=== PATIENT | female | born 1980 | race Caucasian/White ===

== ENCOUNTER → 2016-05-21 | Outpatient (CLI) | payer BC ==
[~2016-05-21] MED LIST: ALBUAER INH; BUDE180I INH; FRRS300 PO; MOME220A INH; MONT1TAB3 PO; MTR600X PO
[2016-05-21 14:37] LABS: URINE APPEARANCE CLEAR (CLEAR); URINE BILIRUBIN NEG (NEG); URINE COLOR DK YELLOW; URINE NITRITE NEG (NEG); URINE PH 5.5 (4.5-7.5); URINE SPECIFIC GRAVITY 1.021 (1.000-1.030); UROBILINOGEN NEG (NEG)
[2016-05-21 14:50] LABS: MANUAL MICROSCOPIC REQUIRED? NO; REVIEW REQ? NO
== END | disposition home or self-care (01) ==
LOC: C.LABSPEC 13:52
PROVIDERS: ATTEND Obstetrics & Gynecology
DX: O09.299 Supervision of pregnancy with other poor reproductive or obstetric history, unspecified trimester (principal)

== ENCOUNTER → 2016-05-29 | Outpatient (CLI) | payer BC ==
[~2016-05-29] MED LIST changes: +ANTIBIOTIC EXT; +PRENTAB26 PO; +RANI150T3 PO; +VALA500T60 PO
[2016-05-29 10:28] LABS: BASO % 0.2 %; BASO ABS # 0.02 K/uL (0-0.2); COMPLETE YES; HEMATOCRIT 35.5 % (37-47); IG% 0.4 %; LYMPH % 17.2 %; LYMPH ABS # 1.73 K/uL (1.2-3.4); MEAN CORPUSCULAR HEMOGLOBIN 31.1 pg (25-34); MEAN CORPUSCULAR HGB CONC 34.9 g/dl (32-36); MEAN PLATELET VOLUME 8.8 fL (7.4-10.4); MONO % 7.6 %; NEUT % 73.6 %; PLATELET COUNT 271 K/uL (130-400); RED BLOOD COUNT 3.99 M/uL (4.2-5.4); WHITE BLOOD COUNT 10.08 K/uL (4.8-10.8)
[2016-05-31 01:17] LABS: CHLAMYDIA TRACH RNA*** NOT DETECTED (NOT DETECTED); GC (NEIS GONORRHOEAE)RNA** NOT DETECTED (NOT DETECTED)
== END | disposition home or self-care (01) ==
LOC: C.LAB1850 08:51
PROVIDERS: ATTEND Obstetrics & Gynecology
DX: O09.519 Supervision of elderly primigravida, unspecified trimester (principal); Z3A.00 Weeks of gestation of pregnancy not specified

== ENCOUNTER → 2016-07-19 | Outpatient (CLI) | payer BC ==
[2016-07-19 17:39] LABS: GTGD 50 Grams
[2016-07-26 15:31] LABS: AFP CONCENTRATION 42.5 NG/ML; AFP MULTIPLE OF MEDIAN 1.51; AFPTS GESTATIONAL AGE 16.1 WEEKS; AFPTS INSULIN DEP DIABETIC? NO; AFPTS MATERNAL WT 193 LBS; ALPHA-FETOPROTEIN RACE CAUCASIAN=W; HISTORY OF NTD NO; REPEAT SAMPLE? NO
== END | disposition home or self-care (01) ==
LOC: C.LAB1850 14:14
PROVIDERS: ATTEND Obstetrics & Gynecology
DX: O09.299 Supervision of pregnancy with other poor reproductive or obstetric history, unspecified trimester (principal); Z3A.00 Weeks of gestation of pregnancy not specified

== ENCOUNTER → 2016-10-15 | Outpatient (CLI) | payer BC ==
[~2016-10-15] MED LIST changes: -ANTIBIOTIC EXT; -PRENTAB26 PO; -RANI150T3 PO; -VALA500T60 PO
[2016-10-15 16:57] LABS: HEMATOCRIT 36.3 % (37-47)
[2016-10-15 18:10] LABS: GTGD 50 Grams
[2016-10-15 18:25] LABS: URINE APPEARANCE CLEAR (CLEAR); URINE BILIRUBIN NEG (NEG); URINE COLOR YELLOW; URINE NITRITE NEG (NEG); URINE SPECIFIC GRAVITY 1.009 (1.000-1.030); UROBILINOGEN NEG (NEG)
[2016-10-15 18:27] LABS: MANUAL MICROSCOPIC REQUIRED? NO; REVIEW REQ? NO
== END | disposition home or self-care (01) ==
LOC: C.LAB1850 16:03
PROVIDERS: ATTEND Obstetrics & Gynecology
DX: O09.512 Supervision of elderly primigravida, second trimester (principal)

== ENCOUNTER → 2016-11-01 | Outpatient (CLI) | payer BC ==
[2016-11-01 11:41] LABS: URINE APPEARANCE CLEAR (CLEAR); URINE BILIRUBIN NEG (NEG); URINE COLOR YELLOW; URINE NITRITE NEG (NEG); URINE PH 8.5 (4.5-7.5); URINE SPECIFIC GRAVITY 1.016 (1.000-1.030); UROBILINOGEN NEG (NEG)
[2016-11-01 11:45] LABS: MANUAL MICROSCOPIC REQUIRED? NO; REVIEW REQ? NO
== END | disposition home or self-care (01) ==
LOC: C.LABSPEC 10:55
PROVIDERS: ATTEND Obstetrics & Gynecology
DX: O23.43 Unspecified infection of urinary tract in pregnancy, third trimester (principal)

== ENCOUNTER → 2016-11-27 | Outpatient (CLI) | payer BC | END | disposition home or self-care (01) | LOC: C.LABSPEC 15:37 | PROVIDERS: ATTEND Obstetrics & Gynecology | DX: L02.211 Cutaneous abscess of abdominal wall (principal) ==

== ENCOUNTER → 2016-12-05 | Outpatient (CLI) | payer BC | END | disposition home or self-care (01) | LOC: C.LABSPEC 17:33 | PROVIDERS: ATTEND Obstetrics & Gynecology | DX: O09.513 Supervision of elderly primigravida, third trimester (principal) ==

== ENCOUNTER 2016-12-17 14:17 | Day surgery (SDC) | payer BC ==
[~2016-12-17] VITALS: Ht 170.2 cm; Wt 94.0 kg
[~2016-12-17 14:17] MED LIST changes: +ERTAPENEM IV 1 GM in SODIUM CHLOR 0.9% AD-VAN 50ML IV SCH
[2016-12-17] MEDS ORDERED: ANTIBIOTIC EXT (14:32)
[2016-12-17] MEDS ORDERED: PRENTAB26 PO (14:32)
[2016-12-17 14:33] VITALS: BP 131/74; PULSE 93; TEMP 36.7; O2SAT 95; Ht 170.2 cm; Wt 94.0 kg
[2016-12-17] MEDS ORDERED: RANI150T3 PO (14:33)
[2016-12-31] MEDS ORDERED: VALA500T60 PO (11:56)
== END 2017-04-25 10:25 | disposition home or self-care (01) ==
LOC: C.MTU 14:17 → EDSTATUS 14:30 → C.MTU 04-25 10:25
PROVIDERS: ATTEND Internal Medicine Infectious Disease
DX: L02.92 Furuncle, unspecified (principal)

== ENCOUNTER → 2016-12-24 | Outpatient (CLI) | payer BC ==
[~2016-12-24] MED LIST changes: +ANTIBIOTIC EXT; -ERTAPENEM IV 1 GM in SODIUM CHLOR 0.9% AD-VAN 50ML IV SCH; -FRRS300 PO; -MOME220A INH; -MTR600X PO; +PRENTAB26 PO; +RANI150T3 PO; +VALA500T60 PO
[2016-12-24 21:07] LABS: HEMATOCRIT 39.9 % (37-47); MEAN CELL VOLUME 95.9 fL (80-100); MEAN CORPUSCULAR HEMOGLOBIN 32.7 pg (25-34); MEAN CORPUSCULAR HGB CONC 34.1 g/dl (32-36); MEAN PLATELET VOLUME 10.4 fL (7.4-10.4); PLATELET COUNT 223 K/uL (130-400); RED BLOOD COUNT 4.16 M/uL (4.2-5.4); WHITE BLOOD COUNT 11.16 K/uL (4.8-10.8)
[2016-12-24 21:39] LABS: ALB/GLOB RATIO 0.6 (0.9-2); ALKALINE PHOSPHATASE 161 U/L (45-117); ALT/SGPT 16 U/L (12-78); AST/SGOT 21 U/L (15-37); BLOOD UREA NITROGEN 10 mg/dl (7-18); BUN/CREATININE RATIO 18.6 (10-20); C-REACTIVE PROTEIN 0.49 mg/dl (0-0.29); CALCIUM 9.4 mg/dl (8.5-10.1); CARBON DIOXIDE 23 mmol/L (21-32); CHLORIDE 103 mmol/L (98-107); CREATININE 0.51 mg/dl (0.60-1.20); GLUCOSE 84 mg/dl (70-99); SODIUM 135 mmol/L (136-145)
== END | disposition home or self-care (01) ==
LOC: C.LABSPEC 11:40
PROVIDERS: ATTEND Internal Medicine Infectious Disease
DX: L02.92 Furuncle, unspecified (principal)

== ENCOUNTER → 2017-01-15 | Outpatient (CLI) | payer BC | END | disposition home or self-care (01) | LOC: C.LABSPEC 11:03 | PROVIDERS: ATTEND Obstetrics & Gynecology | DX: B37.3 Candidiasis of vulva and vagina (principal) ==